=== PATIENT | female | born 1930 | race Caucasian/White ===

== ENCOUNTER 2017-06-02 05:32 | Emergency (ER) | payer MEDICARE, OTHER ==
[~2017-06-02 05:32] MED LIST: ALLO300T2 PO; ARIM1TAB PO; AUGM875T PO; BABY81CH PO; CALCCHW9; CARV6.25 PO; CORE3.12 OR; COUM2.5T OR; DIOV320T PO; FURO1TAB93 PO; KLOR20TA6 PO; LEVO88TA2 PO; LIDO1PAD; LIVA2TAB PO; LOFI160T PO; LORTA5 PO; MIRTA15 PO; NEUR600T PO; NYST100010 TOP; PROT40TA PO; PROZ20CA11 PO; REME15TA PO; ROPI1TAB72 PO; ULTR50TA PO; XARE20TA PO
[2017-06-02 05:45] VITALS: BP 143/64; PULSE 65; RESP 18; TEMP 98.1; O2SAT 98
== END 2017-06-02 06:45 | disposition left against medical advice (07) ==
LOC: PHED 05:32
DX: R10.31 Right lower quadrant pain (principal)
CPT/HCPCS: 99281